=== PATIENT | female | born 1950 | race Caucasian/White ===

== ENCOUNTER 2020-04-28 07:49 | Day surgery (SDC) | payer MEDICARE, OTHER ==
[~2020-04-28 07:49] MED LIST: Lactated Ringers 1,000 ML IV SCH; Lidocaine 1%/Sod Bicarbonate in NS 8.4% 1 ML Syringe IDERM PRN; Sodium Chloride 0.9% 10 ML Syringe FLUSH PRN
--- NOTE | 2020-04-28 08:17 | PCM.PREANE ---
Preanesthetic Assessment - Procedure Proposed Procedure: EGD and Colonoscopy - Anesthesia/Transfusion/Family Hx Anesthesia History: Prior Anesthesia Without Reaction Family History of Anesthesia Reaction: No Transfusion History: Prior Transfusion Without Reaction - Review of Systems General: No Symptoms Pulmonary: No Symptoms Cardiovascular: Dyspnea on Exertion, Other (HTN) Gastrointestinal: Abdominal Pain (hunger) Neurological: Numbness ("in hands lately") Other: Reports: None - Physical Assessment NPO Status Date: 04/27/20 NPO Status Time: 00:00 Vital Signs: Last Vital Signs Temp 36.9 C 04/28/20 07:42 Pulse 73 04/28/20 07:42 Resp 20 04/28/20 07:42 BP 133/70 04/28/20 07:42 Pulse Ox 96 04/28/20 07:42 Height: 1.65 m Weight: 98.5 kg ASA Class: 3 Mental Status: Alert & Oriented x3 Airway Class: Mallampati = 3 Dentition: Reports: Normal Dentition Thyro-Mental Finger Breadths: 2 Mouth Opening Finger Breadths: 2 ROM/Head Extension: Full Lungs: Clear to Auscultation, Normal Respiratory Effort Cardiovascular: Regular Rate, Regular Rhythm - Allergies Allergies/Adverse Reactions: Allergies Allergy/AdvReac Type Severity Reaction Status Date / Time No Known Allergies Allergy Verified 04/27/20 14:14 - Blood Blood Available: No Product(s) Available: None - Anesthesia Plan Pre-Op Medication Ordered: Beta Dominique Beta Dominique: Metoprolol Med Last Dose Date: 04/27/20 Med Last Dose Time: 08:00 - Acknowledgements Anesthesia Type Planned: MAC Pt an Appropriate Candidate for the Planned Anesthesia: Yes Alternatives and Risks of Anesthesia Discussed w Pt/Guardian: Yes Pt/Guardian Understands and Agrees with Anesthesia Plan: Yes PreAnesthesia Questionnaire HEENT History: Reports: Impaired Vision, Other (See Below) Other HEENT History: wears glasses Cardiovascular History: Reports: Hypertension Respiratory History: Reports: Sleep Apnea Gastrointestinal History: Reports: GERD Genitourinary History: Reports: Other (See Below) Other Genitourinary History: frequency 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) Other OB/BYN History: uterine leiomyoma Neurological History: Reports: None Psychiatric History: Reports: None Endocrine/Metabolic History: Reports: None Hematologic History: Reports: None Immunologic History: Reports: None Oncologic (Cancer) History: Reports: None - Past Surgical History Head Surgeries/Procedures: Reports: None HEENT Surgical History: Reports: Cataract Surgery, Naso-Sinus Surgery Cardiovascular Surgical History: Reports: None Respiratory Surgical History: Reports: None GI Surgical History: Reports: Appendectomy, Cholecystectomy, Colonoscopy, EGD Female Surgical History: Reports: Hysterectomy Male Surgical History: Reports: None Endocrine Surgical History: Reports: None Neurological Surgical History: Reports: None Musculoskeletal Surgical History: Reports: Hip Replacement, Knee Replacement, Other (See Below) Other Musculoskeletal Surgeries/Procedures:: left knee and hip replacement, knee surgery, shoulder surgery Oncologic Surgical History: Reports: None Dermatological Surgical History: Reports: None - SUBSTANCE USE Smoking Status *Q: Never Smoker Tobacco Use Within Last Twelve Months: No Second Hand Smoke Exposure: No Days Per Week of Alcohol Use: 1 Number of Drinks Per Day: 0 Total Drinks Per Week: 0 Recreational Drug Use History: No - HOME MEDS Home Medications: Home Meds Aspirin/Caffeine [Anacin 400-32 mg Tablet] 1 tab PO DAILY 04/27/20 [History] Lisinopril/Hydrochlorothiazide [Lisinopril-Hctz 20-25 mg Tab] 1 tab PO DAILY 04/27/20 [History] Metoprolol Succinate 25 mg PO DAILY 04/27/20 [History] Multivitamin [Daily Multiple Vitamin] 1 tab PO DAILY 04/27/20 [History] Omeprazole 20 mg PO DAILY 04/27/20 [History] Verapamil [Calan SR] 180 mg PO BID 04/27/20 [History] Vitamin B Complex 1 cap PO DAILY 04/27/20 [History] - CURRENT (IN HOUSE) MEDS Current Meds: Current Medications Lactated Ringer's (Ringers, Lactated) 1,000 mls @ 125 mls/hr IV ASDIRECTED ZORAIDA Stop: 04/28/20 23:00 Lidocaine/Sodium Bicarbonate (Buffered Lidocaine 1% In Ns 8.4%) 0.25 ml IDERM ONETIME PRN PRN Reason: Prior to IV Start Stop: 04/28/20 18:00 Sodium Chloride (Saline Flush) 10 ml FLUSH ASDIRECTED PRN PRN Reason: Keep Vein Open Stop: 04/28/20 18:00
[2020-04-28] MEDS ORDERED: Propofol 200 MG/20 ML SDV ONE ×3 (08:49→09:43)
[2020-04-28] MEDS ORDERED: fentaNYL 100 MCG/2 ML SDV ONE (08:49)
[2020-04-28] MEDS ORDERED: Lidocaine 1% 4 ML ONE (08:49)
--- NOTE | 2020-04-28 10:25 | PCM48HPAN ---
Post Anesthesia Note - EVALUATION WITHIN 48HRS OF ANESTHETIC Vital Signs in Normal Range: Yes Patient Participated in Evaluation: Yes Respiratory Function Stable: Yes Airway Patent: Yes Cardiovascular Function Stable: Yes Hydration Status Stable: Yes Pain Control Satisfactory: Yes Nausea and Vomiting Control Satisfactory: Yes Mental Status Recovered: Yes Vital Signs: Last Vital Signs Temp 98.5 F 04/28/20 10:17 Pulse 50 L 04/28/20 10:17 Resp 16 04/28/20 10:17 BP 109/52 L 04/28/20 10:17 Pulse Ox 94 L 04/28/20 10:17
--- NOTE | 2020-04-28 10:30 | PCM.PRNOTE ---
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 No gross esophagitis or metaplastic changes. Hypopigmented plaques within mid-esophagus. Challenging colonoscopy. Extensive diverticular disease involving the entire colon, most markedly at the sigmoid. Difficult to navigate beyond the sigmoid. Colon redundancy made intubating the cecum very challenging. One broad-based sessile polyp identified in the cecum near the ileocecal valve. Prep was poor and visualization sub optimal. External hemorrhoidal skin tags noted. Detailed Report: The patient was taken to the endoscopy suite and placed in left lateral decubitus position. Time out was performed and monitored anesthesia care initiated. A bite block was placed and the endoscope was inserted orally. The scope was advanced into the duodenum with ease. The duodenum appeared normal. The stomach has numerous small polyps that grossly appeared consistent with fundic gland polyps; one of the larger lesions was biopsied with forceps. No ulceration or hiatal hernia noted. The Z-line appeared normal. There was no gross evidence of Morales esophagus or esophagitis. There was a whitish plaque at the mid esophagus. Biopsies were taken including from the area of plaque. Air was suctioned and the scope withdrawn. Next, attention was turned to colonoscopy. Inspection of the anus revealed external hemorrhoidal skin tags. Digital exam was unremarkable. The colonoscope was lubricated and inserted into the anus. It was very challenging to navigate the sigmoid due to tight turns and extensive diverticular disease. The ileocecal valve was visualized, but beyond this was very difficult to access due to looping of the endoscope. With abdominal maneuvers and placing the patient supine, this area was well visualized. The scope was slowly withdrawn. Prep was poor, with pieces of stool with cloudy green fluid with extensive particulate matter. The suction would continue to obstruct due to particulate matter. Visualization was thus suboptimal in certain areas. A roughly 1 cm sessile polyp was seen close to the ileocecal valve. This was excised piecemeal with forceps and remnant tissue cauterized. No other polyps were identified, though it is possible more than one polyp was missed due to poor prep. Minor internal hemorrhoids noted on retroflexion of the scope within the rectum. Air was suctioned prior to removal of the scope. The patient tolerated the procedure well.
== END 2020-04-28 11:20 | disposition home or self-care (01) ==
LOC: JD.SDS 07:49
PROVIDERS: ATTEND Surgery
DX: Z12.11 Encounter for screening for malignant neoplasm of colon (principal); K63.5 Polyp of colon; K31.7 Polyp of stomach and duodenum; K22.8 Other specified diseases of esophagus; K64.4 Residual hemorrhoidal skin tags; K21.0 Gastro-esophageal reflux disease with esophagitis; K57.30 Diverticulosis of large intestine without perforation or abscess without bleeding; I10 Essential (primary) hypertension; Z86.010 Personal history of colon polyps; Z79.899 Other long term (current) drug therapy; Z87.19 Personal history of other diseases of the digestive system; Z98.890 Other specified postprocedural states; Z80.0 Family history of malignant neoplasm of digestive organs
CPT/HCPCS: 43239; 45380; J2001; J2704; J3010; J7120; 00813; 88305

== ENCOUNTER → 2021-07-06 | Day surgery (SDC) | payer MEDICARE, OTHER ==
[~2021-07-06] MED LIST changes: +Lidocaine 1% 4 ML ONE; +Propofol 200 MG/20 ML SDV ONE
--- NOTE | 2021-07-06 08:26 | PCM.PREANE ---
Preanesthetic Assessment - Procedure Proposed Procedure: screening colonoscopy - Anesthesia/Transfusion/Family Hx Anesthesia History: Prior Anesthesia Without Reaction Family History of Anesthesia Reaction: No Transfusion History: Prior Transfusion Without Reaction - Review of Systems General: No Symptoms Pulmonary: No Symptoms Cardiovascular: No Symptoms Gastrointestinal: No Symptoms Neurological: No Symptoms Other: Reports: None - Physical Assessment NPO Status Date: 07/05/21 NPO Status Time: 21:30 Vital Signs: 134/60 66 96% 98.2 12 Height: 5 ft 5 in Weight: 99 kg ASA Class: 2 Mental Status: Alert & Oriented x3 Airway Class: Mallampati = 2 Dentition: Reports: Normal Dentition Thyro-Mental Finger Breadths: 3 Mouth Opening Finger Breadths: 3 ROM/Head Extension: Full Lungs: Clear to Auscultation, Normal Respiratory Effort Cardiovascular: Regular Rate, Regular Rhythm - Allergies Allergies/Adverse Reactions: Allergies Allergy/AdvReac Type Severity Reaction Status Date / Time No Known Allergies Allergy Verified 07/05/21 18:24 - Blood Blood Available: No - Anesthesia Plan Beta Dominique: Metoprolol Med Last Dose Date: 07/05/21 Med Last Dose Time: 21:30 - Acknowledgements Anesthesia Type Planned: MAC Pt an Appropriate Candidate for the Planned Anesthesia: Yes Alternatives and Risks of Anesthesia Discussed w Pt/Guardian: Yes Pt/Guardian Understands and Agrees with Anesthesia Plan: Yes PreAnesthesia Questionnaire HEENT History: Reports: Impaired Vision, Other (See Below) Other HEENT History: wears glasses Cardiovascular History: Reports: Hypertension Respiratory History: Reports: Sleep Apnea (cpap) Gastrointestinal History: Reports: GERD Genitourinary History: Reports: Other (See Below) Other Genitourinary History: frequency 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) Other OB/BYN History: uterine leiomyoma Neurological History: Reports: None Psychiatric History: Reports: None Endocrine/Metabolic History: Reports: Obesity/BMI 30+ Hematologic History: Reports: None Immunologic History: Reports: None Oncologic (Cancer) History: Reports: None Dermatologic History: Reports: None - Infectious Disease History Infectious Disease History: Reports: None - Past Surgical History Head Surgeries/Procedures: Reports: None HEENT Surgical History: Reports: Cataract Surgery, Naso-Sinus Surgery Cardiovascular Surgical History: Reports: None Respiratory Surgical History: Reports: None GI Surgical History: Reports: Appendectomy, Cholecystectomy, Colonoscopy, EGD Female Surgical History: Reports: Hysterectomy Male Surgical History: Reports: None Endocrine Surgical History: Reports: None Neurological Surgical History: Reports: None Musculoskeletal Surgical History: Reports: Hip Replacement, Knee Replacement, Shoulder Surgery, Other (See Below) Other Musculoskeletal Surgeries/Procedures:: left knee and hip replacement, knee surgery, shoulder surgery Oncologic Surgical History: Reports: None Dermatological Surgical History: Reports: None - SUBSTANCE USE Tobacco Use Status *Q: Never Tobacco User Tobacco Use Within Last Twelve Months: No Second Hand Smoke Exposure: No Days Per Week of Alcohol Use: 1 Recreational Drug Use History: No - HOME MEDS Home Medications: Home Meds Lisinopril/Hydrochlorothiazide [Lisinopril-Hctz 20-25 mg Tab] 1 tab PO DAILY 04/27/20 [History] Metoprolol Succinate 25 mg PO DAILY 04/27/20 [History] Omeprazole 20 mg PO DAILY 04/27/20 [History] Ascorbic Acid [Vitamin C] 1,000 mg PO DAILY 07/05/21 [History] Cholecalciferol (Vitamin D3) [Vitamin D] 5,000 unit PO DAILY 07/05/21 [History] Collagen, Hydrolysate (Bovine) [Collagen Hydrolysate] 1 gm PO DAILY 07/05/21 [History] Diclofenac Sodium [Voltaren 1% Gel] 1 dose TOP BID PRN 07/05/21 [History] Fish Oil/[place]-3 Fatty Acids [Fish Oil 1,000 MG] 1 gm PO DAILY 07/05/21 [History] Magnesium Oxide [Magnesium Oxide 400] 400 mg PO DAILY 07/05/21 [History] Verapamil HCl 360 mg PO DAILY 07/05/21 [History] - CURRENT (IN HOUSE) MEDS Current Meds: Current Medications Lactated Ringer's (Ringers, Lactated) 1,000 mls @ 125 mls/hr IV ASDIRECTED ZORAIDA Lidocaine/Sodium Bicarbonate (Lidocaine 1%/Sod Bicarbonate In Ns 8.4% 1 Ml Syringe) 0.25 ml IDERM ONETIME PRN PRN Reason: Prior to IV Start Sodium Chloride (Sodium Chloride 0.9% 10 Ml Syringe) 10 ml FLUSH ASDIRECTED PRN PRN Reason: Keep Vein Open
--- NOTE | 2021-07-06 10:35 | PCM.PRNOTE ---
- Free Text/Narrative Note: Date: 07/06/2021 Procedure: screening colonoscopy Indication: scoped last year with poor prep Endoscopist: Juan Diego Foster MD Findings: single small polyp near splenic flexure. Extensive diverticular disease. Prep was significantly better this time. Detailed Report: The patient was taken to the endoscopy suite and placed in left lateral decubitus position. Timeout was performed and monitored anesthesia care was initiated. Visual inspection of the anus revealed external hemorrhoidal disease, and digital rectal exam was unremarkable. The colonoscope was inserted and advanced to the cecum. Again, this was a challenging colonoscopy due to redundancy, and abdominal maneuvers and repositioning the patient to supine position were required in order to successfully intubate the cecum. The appendiceal orifice was visualized. Prep was overall pretty good. Scope was slowly withdrawn and mucosal surfaces carefully inspected. There was diverticular disease throughout the colon, most impressive in the sigmoid. A single sessile subcentimeter polyp was identified about the level of the splenic flexure and this was removed using cold jumbo forceps. No pathology was noted on retroflexion within the rectum. Air was suctioned from the distal colon and rectum prior to withdrawal of the scope. The patient tolerated the procedure well.
--- NOTE | 2021-07-06 10:42 | PCM48HPAN ---
Post Anesthesia Note - EVALUATION WITHIN 48HRS OF ANESTHETIC Vital Signs in Normal Range: Yes Patient Participated in Evaluation: Yes Respiratory Function Stable: Yes Airway Patent: Yes Cardiovascular Function Stable: Yes Hydration Status Stable: Yes Pain Control Satisfactory: Yes Nausea and Vomiting Control Satisfactory: Yes Mental Status Recovered: Yes Vital Signs: Last Vital Signs Temp 36.8 C 07/06/21 07:40 Pulse 66 07/06/21 07:40 Resp 12 07/06/21 07:40 BP 134/60 07/06/21 07:40 Pulse Ox 96 07/06/21 07:40
== END | disposition home or self-care (01) ==
LOC: JD.SDS 07:50
PROVIDERS: ATTEND Surgery
DX: Z12.11 Encounter for screening for malignant neoplasm of colon (principal); D12.3 Benign neoplasm of transverse colon; K57.30 Diverticulosis of large intestine without perforation or abscess without bleeding; K21.9 Gastro-esophageal reflux disease without esophagitis; I10 Essential (primary) hypertension; G47.33 Obstructive sleep apnea (adult) (pediatric); Z79.899 Other long term (current) drug therapy; Z98.890 Other specified postprocedural states
CPT/HCPCS: 45380; J2704; J7120

== ENCOUNTER 2024-04-03 11:18 | Emergency (ER) | payer MEDICARE, OTHER ==
[2024-04-03 12:05] LABS: BASOPHILS ABSOLUTE AUTO 0.1 K/mm3 (0.0-0.2); BASOPHILS PERCENT AUTO 0.5 % (0.0-1.0); EOSINOPHILS ABSOLUTE AUTO 0.1 K/mm3 (0.0-0.4); EOSINOPHILS PERCENT AUTO 1.3 % (0.0-6.0); HEMATOCRIT 39.9 % (37.0-47.0); IMMATURE GRAN ABSOLUTE AUTO 0.03 K/mm3 (0.00-0.05); IMMATURE GRAN PERCENT AUTO 0.3 % (0.0-0.4); LYMPHOCYTES ABSOLUTE AUTO 3.6 K/mm3 (1.0-4.8); LYMPHOCYTES PERCENT AUTO 38.4 % (24.0-44.0); MEAN CORPUSCULAR HEMOGLOBIN 27.7 pg (28.0-32.0); MEAN CORPUSCULAR HGB CONC 33.1 g/dl (32.0-36.0); MEAN CORPUSCULAR VOLUME 83.8 fl (83.0-99.0); MEAN PLATELET VOLUME 9.5 fl (9.4-12.3); MONOCYTES ABSOLUTE AUTO 0.6 K/mm3 (0.0-0.8); MONOCYTES PERCENT AUTO 6.4 % (0.0-8.0); NEUTROPHILS PERCENT AUTO 53.1 % (41.0-71.0); PLATELET COUNT,PLT 234 K/mm3 (150-400); RED BLOOD CELL COUNT 4.76 M/mm3 (4.10-5.30); WHITE BLOOD CELL COUNT,WBC 9.39 K/mm3 (3.9-11.3)
[2024-04-03 12:06] LABS: HEMOGLOBIN 13.2 gm/dl (12.0-16.0)
[2024-04-03] MEDS: Sodium Chloride 0.9% 10 ML Syringe FLUSH PRN (12:17)
[2024-04-03 12:23] LABS: HEMOGLOBIN A1C 5.7 %
[2024-04-03 12:29] LABS: A/G RATIO 0.9 (1-2); ALANINE AMINOTRANSFERASE,ALT 34 U/L (14-59); ALKALINE PHOSPHATASE 85 U/L (46-116); ANION GAP 13.7 (5-15); ASPARTATE AMNIOTRANSFERASE,AST 21 U/L (15-37); BILIRUBIN TOTAL 0.6 mg/dL (0.2-1.0); BLOOD UREA NITROGEN,BUN 21 mg/dL (7-18); C-REACTIVE PROTEIN 0.26 mg/dL (<0.30); CALCIUM 9.5 mg/dL (8.5-10.1); CARBON DIOXIDE,CO2 26 mEq/L (21-32); CHLORIDE,CL 100 mEq/L (98-107); EST CRCL DRUG DOSING (CG) 45.08 mL/min; ESTIMATED GFR 59 mL/min (>60); GLUCOSE RANDOM 102 mg/dL (70-99); MAGNESIUM 1.9 mg/dL (1.8-2.4); POTASSIUM,K 3.7 mEq/L (3.5-5.1); PROTEIN TOTAL,TP 8.4 g/dl (6.4-8.2); SODIUM,NA 136 mEq/L (136-145); TROPONIN I HIGH SENSITIVITY < 4 pg/mL (<=51)
== END 2024-04-03 13:25 | disposition home or self-care (01) ==
LOC: JD.ED 11:18
DX: R00.2 Palpitations (principal); I10 Essential (primary) hypertension; K21.9 Gastro-esophageal reflux disease without esophagitis; E66.9 Obesity, unspecified; Z79.899 Other long term (current) drug therapy; Z68.37 Body mass index [BMI] 37.0-37.9, adult
CPT/HCPCS: 36415; 71045; 80053; 83036; 83735; 83880; 84443; 84484; 85025; 85379; 86140; 93005; 93246; 99285; J3490